=== PATIENT | female | born 1960 | race African-American/Black ===

== ENCOUNTER 2021-09-04 17:28 | Inpatient (IN) | payer MEDICAID ==
[~2021-09-04] VITALS: Ht 167.6 cm; Wt 68.1 kg
[2021-09-04] MEDS ORDERED: LEVETIRACETAM 1000MG PREMIX 100 ML IV ONE (17:45)
[2021-09-04] MEDS ORDERED: SODIUM CHLORIDE 0.9% 1,000 ML IV ONE (17:45)
[2021-09-04 18:30] LABS: MEAN CORPUSCULAR HEMOGLOBIN 26.5 pg (28.0-32.0); MEAN PLATELET VOLUME 7.7 fl (7.4-10.4); PLATELET 640 x1000/uL (130-400); RED BLOOD CELL COUNT 1.23 mill/uL (4.2-5.4); RED CELL DISTRIBUTION WIDTH 21.5 % (11.6-14.6)
[2021-09-04 18:34] LABS: CHLORIDE 93 mEq/L (98-107)
[2021-09-04 18:36] LABS: HEMOGLOBIN. 3.3 g/dL (12.0-16.0)
[2021-09-04 18:37] LABS: HEMATOCRIT. 10.7 % (36.0-48.0)
[2021-09-04 18:39] LABS: ETHANOL BLOOD < 10 mg/dL
[2021-09-04 18:44] LABS: CREATINE KINASE 33 IU/L (26-192)
[2021-09-04 18:45] LABS: CLARITY URINE CLEAR (CLEAR); COLOR URINE YELLOW (YELLOW); KETONES URINE NEGATIVE (NEGATIVE); LEUKOCYTE ESTERASE URINE NEGATIVE (NEGATIVE); NITRITE URINE NEGATIVE (NEGATIVE); OCCULT BLOOD URINE NEGATIVE (NEGATIVE); PH URINE 5.5 (4.5-8.0); PROTEIN URINE 1+ (NEGATIVE); SPECIFIC GRAVITY URINE 1.014 (1.005-1.030)
[2021-09-04 19:20] LABS: NUCLEATED RED BLOOD CELLS 1 /100 WBC
[2021-09-04 19:21] LABS: PLATELET ESTIMATE INCREASED
[2021-09-04 19:24] LABS: *AMPHETAMINES SCREEN URINE NEGATIVE (NEGATIVE); *BARBITURATES SCREEN URINE NEGATIVE (NEGATIVE); *BENZODIAZEPINES SCREEN URINE NEGATIVE (NEGATIVE); *COCAINE SCREEN URINE PRESUMTIVE POSITIVE (NEGATIVE); CANNABINOID URINE SCREEN PRESUMTIVE POSITIVE (NEGATIVE); METHADONE URINE SCREEN NEGATIVE (NEGATIVE); OPIATES URINE SCREEN NEGATIVE (NEGATIVE); PHENCYCLIDINE URINE SCREEN NEGATIVE (NEGATIVE)
[2021-09-05] VITALS (9 sets, daily range): BP systolic 112–148; BP diastolic 59–78
[2021-09-05] MEDS: SODIUM CHLORIDE 0.9% 1,000 ML IV SCH (04:53)
[2021-09-05 07:58] LABS: HEMOGLOBIN 8.4 g/dL (12.0-16.0)
[2021-09-05] MEDS ORDERED: ONDANSETRON HCL 4MG/2ML INJ IV PRN (09:15)
[2021-09-05] MEDS ORDERED: LORAZEPAM 2MG/ML CPJ IV PRN (09:15)
[2021-09-05] MEDS ORDERED: ACETAMINOPHEN 325MG TABLET PO PRN (09:15)
[2021-09-05] MEDS ORDERED: PANTOPRAZOLE SODIUM 40 MG/VIAL IV SCH (15:15)
[2021-09-05 18:27] LABS: BASOPHILS % 0.2 % (0.0-2.0); EOSINOPHILS % 0.5 % (0.0-5.0); LYMPHOCYTES % 12.5 % (20.0-50.0); MEAN CORPUSCULAR HEMOGLOBIN 25.9 pg (28.0-32.0); MEAN CORPUSCULAR VOLUME 78.9 fL (81.0-99.0); MEAN PLATELET VOLUME 6.7 fl (7.4-10.4); MONOCYTES % 6.1 % (2.0-8.0); NEUTROPHILS % 80.7 % (40.0-76.0); PLATELET 446 x1000/uL (130-400); RED BLOOD CELL COUNT 2.41 mill/uL (4.2-5.4); RED CELL DISTRIBUTION WIDTH 18.4 % (11.6-14.6)
[2021-09-05 18:40] LABS: HEMATOCRIT. 19.1 % (36.0-48.0); HEMOGLOBIN. 6.2 g/dL (12.0-16.0)
[2021-09-05 19:05] LABS: FOLIC ACID (FOLATE) SERUM 14.1 ng/mL (>5.38)
[2021-09-05 21:00] LABS: HEMOGLOBIN 6.1 g/dL (12.0-16.0)
[2021-09-05 21:01] LABS: HEMATOCRIT 18.6 % (36.0-48.0)
[2021-09-05] MEDS: LEVETIRACETAM 500MG TABLET PO SCH (22:15)
[2021-09-05 22:39] LABS: TOTAL IRON BINDING CAPACITY 423 ug/dL (250-450)
[2021-09-06] VITALS (9 sets, daily range): BP systolic 100–129; BP diastolic 48–81
[2021-09-06] MEDS: PANTOPRAZOLE SODIUM 40 MG/VIAL IV SCH ×2 (05:17→17:20)
[2021-09-06 06:44] LABS: PROTHROMBIN TIME 11.2 sec (9.6-11.0)
[2021-09-06] MEDS: SODIUM CHLORIDE 0.9% 1,000 ML IV SCH ×2 (07:00→22:38)
[2021-09-06 08:50] LABS: HEMATOCRIT 21.8 % (36.0-48.0); HEMOGLOBIN 7.2 g/dL (12.0-16.0)
[2021-09-06] MEDS: LEVETIRACETAM 500MG TABLET PO SCH ×2 (10:21→22:35)
[2021-09-06] MEDS ORDERED: LABETALOL 5MG/ML SYR 20 MG/4 ML SYRINGE IV PRN (12:30)
[2021-09-06] MEDS ORDERED: MEPERIDINE HCL/PF 25MG/ML CPJ IV PRN (12:30)
[2021-09-06] MEDS ORDERED: ONDANSETRON HCL 4MG/2ML INJ IV PRN (12:30)
[2021-09-06] MEDS ORDERED: HYDROMORPHONE HCL/PF 2MG/ML CPJ IV PRN (12:30)
[2021-09-06 14:50] LABS: HEMATOCRIT 22.2 % (36.0-48.0); HEMOGLOBIN 7.3 g/dL (12.0-16.0)
[2021-09-06] MEDS: SUCRALFATE 1G TABLET PO SCH (17:20)
[2021-09-06] MEDS ORDERED: IRON SUCROSE COMPLEX 100 MG/5 ML ML IV SCH (18:00)
[2021-09-06 21:39] LABS: PROTHROMBIN TIME 10.9 sec (9.6-11.0)
[2021-09-06 21:56] LABS: HEMATOCRIT 19.8 % (36.0-48.0); HEMOGLOBIN 6.7 g/dL (12.0-16.0)
[2021-09-06] MEDS: IRON SUCROSE COMPLEX 100 MG/5 ML ML IV SCH (22:35)
[2021-09-07] VITALS (13 sets, daily range): BP systolic 85–141; BP diastolic 34–91
[2021-09-07] MEDS ORDERED: SODIUM CHLORIDE 0.9% 1,000 ML IV SCH
[2021-09-07] MEDS: SUCRALFATE 1G TABLET PO SCH ×4 (00:23→17:25)
[2021-09-07] MEDS: DEXT 5%/0.45% NACL 1000ML 1,000 ML IV SCH ×3 (00:24→20:39)
[2021-09-07] MEDS: PANTOPRAZOLE SODIUM 40 MG/VIAL IV SCH ×2 (05:00→16:07)
[2021-09-07 07:21] LABS: CHLORIDE 114 mEq/L (98-107)
[2021-09-07 07:24] LABS: BASOPHILS % 0.5 % (0.0-2.0); HEMATOCRIT. 28.2 % (36.0-48.0); HEMOGLOBIN. 9.5 g/dL (12.0-16.0); LYMPHOCYTES % 17.4 % (20.0-50.0); MEAN CORPUSCULAR HEMOGLOBIN 30.2 pg (28.0-32.0); MEAN CORPUSCULAR VOLUME 89.3 fL (81.0-99.0); MEAN PLATELET VOLUME 7.1 fl (7.4-10.4); MONOCYTES % 8.2 % (2.0-8.0); NEUTROPHILS % 72.9 % (40.0-76.0); PLATELET 277 x1000/uL (130-400); RED BLOOD CELL COUNT 3.16 mill/uL (4.2-5.4); RED CELL DISTRIBUTION WIDTH 16.7 % (11.6-14.6)
[2021-09-07] MEDS: CYANOCOBALAMIN 1000MCG/ML VIAL IM SCH (08:46)
[2021-09-07] MEDS: LEVETIRACETAM 500MG TABLET PO SCH ×2 (08:46→20:39)
[2021-09-07] MEDS: SODIUM CHLORIDE 0.9% 1,000 ML IV SCH ×2 (10:37→20:40)
[2021-09-07 12:36] LABS: HEMOGLOBIN 9.4 g/dL (12.0-16.0)
[2021-09-07] MEDS: IRON SUCROSE COMPLEX 100 MG/5 ML ML IV SCH (20:39)
[2021-09-08] VITALS: BP 104/54
[2021-09-08] MEDS: SUCRALFATE 1G TABLET PO SCH ×5 (00:09→23:14)
[2021-09-08 00:26] LABS: HEMOGLOBIN 9.7 g/dL (12.0-16.0)
[2021-09-08 04:00] VITALS: BP 118/89
[2021-09-08 05:11] LABS: PROTHROMBIN TIME 10.3 sec (9.6-11.0)
[2021-09-08] MEDS: PANTOPRAZOLE SODIUM 40 MG/VIAL IV SCH ×2 (05:15→16:00)
[2021-09-08] MEDS: DEXT 5%/0.45% NACL 1000ML 1,000 ML IV SCH ×2 (05:15→16:00)
[2021-09-08 06:10] LABS: CHLORIDE 111 mEq/L (98-107)
[2021-09-08 06:19] LABS: HEMATOCRIT. 27.1 % (36.0-48.0); HEMOGLOBIN. 9.6 g/dL (12.0-16.0); MEAN CORPUSCULAR HEMOGLOBIN 29.6 pg (28.0-32.0); MEAN CORPUSCULAR VOLUME 83.6 fL (81.0-99.0); MEAN PLATELET VOLUME 7.5 fl (7.4-10.4); PLATELET 335 x1000/uL (130-400); RED BLOOD CELL COUNT 3.24 mill/uL (4.2-5.4); RED CELL DISTRIBUTION WIDTH 17.3 % (11.6-14.6)
[2021-09-08 08:00] VITALS: BP 131/80
[2021-09-08 08:17] LABS: NUCLEATED RED BLOOD CELLS 1 /100 WBC; PLATELET ESTIMATE NORMAL
[2021-09-08] MEDS: LEVETIRACETAM 500MG TABLET PO SCH ×2 (09:06→22:09)
[2021-09-08] MEDS: CYANOCOBALAMIN 1000MCG/ML VIAL IM SCH (09:06)
[2021-09-08] MEDS ORDERED: KCL 20MEQ/100ML PREMIX 100 ML IV NR (11:00)
[2021-09-08 12:00] VITALS: BP 140/86
[2021-09-08] MEDS: SODIUM CHLORIDE 0.9% 1,000 ML IV SCH (12:45)
[2021-09-08] MEDS ORDERED: MIDAZOLAM HCL 5 MG/5 ML VIAL ONE (12:52)
[2021-09-08] MEDS ORDERED: PROPOFOL 200MG/20ML VIAL IV ONE (12:53)
[2021-09-08 16:00] VITALS: BP 151/77
[2021-09-08] MEDS ORDERED: PANTOPRAZOLE 40MG DR TABLET PO SCH (18:30)
[2021-09-08] MEDS ORDERED: POTASSIUM CHLORIDE 20MEQ TABLET SR PO NR (18:30)
[2021-09-08 20:00] VITALS: BP 147/76
[2021-09-08] MEDS: IRON SUCROSE COMPLEX 100 MG/5 ML ML IV SCH (23:13)
[2021-09-09] VITALS (26 sets, daily range): BP systolic 72–176; BP diastolic 34–99
[2021-09-09 03:28] LABS: HEMATOCRIT 21.1 % (36.0-48.0); HEMOGLOBIN 7.2 g/dL (12.0-16.0)
[2021-09-09] MEDS: SUCRALFATE 1G TABLET PO SCH ×3 (06:00→18:48)
[2021-09-09] MEDS: PANTOPRAZOLE 40MG DR TABLET PO SCH ×2 (06:42→21:00)
[2021-09-09] MEDS: SODIUM CHLORIDE 0.9% 1,000 ML IV SCH ×2 (06:42→15:25)
[2021-09-09] MEDS ORDERED: LIDOCAINE HCL 1% 20ML VIAL (Pyxis) INJ ONE ×2 (07:18→13:24)
[2021-09-09] MEDS: LEVETIRACETAM 500MG TABLET PO SCH ×2 (09:40→21:00)
[2021-09-09] MEDS: CYANOCOBALAMIN 1000MCG/ML VIAL IM SCH (09:40)
[2021-09-09] MEDS ORDERED: IOHEXOL-300 100 ML BOTTLE ONE (13:25)
[2021-09-09] MEDS ORDERED: IOHEXOL-350 100 ML BOTTLE ONE (14:16)
[2021-09-09 17:42] LABS: HEMATOCRIT. 21.5 % (36.0-48.0); HEMOGLOBIN. 7.2 g/dL (12.0-16.0); MEAN CORPUSCULAR HEMOGLOBIN 28.8 pg (28.0-32.0); MEAN CORPUSCULAR VOLUME 85.8 fL (81.0-99.0); MEAN PLATELET VOLUME 7.8 fl (7.4-10.4); PLATELET 256 x1000/uL (130-400); RED CELL DISTRIBUTION WIDTH 15.8 % (11.6-14.6)
[2021-09-09 18:12] LABS: PLATELET ESTIMATE NORMAL
[2021-09-09 18:29] LABS: CHLORIDE 114 mEq/L (98-107)
[2021-09-09] MEDS ORDERED: ONDANSETRON HCL 4MG/2ML INJ IV PRN (20:45)
[2021-09-09] MEDS: IRON SUCROSE COMPLEX 100 MG/5 ML ML IV SCH (21:12)
[2021-09-09] MEDS ORDERED: SODIUM CHLORIDE 0.9% 1,000 ML IV SCH (22:00)
[2021-09-09] MEDS ORDERED: PANTOPRAZOLE 80 MG in SODIUM CHLORIDE 0.9% 100 ML IV SCH ×4 (22:00)
[2021-09-10] VITALS (24 sets, daily range): BP systolic 93–170; BP diastolic 54–88
[2021-09-10 00:06] LABS: HEMOGLOBIN 6.5 g/dL (12.0-16.0)
[2021-09-10 00:07] LABS: HEMATOCRIT 18.9 % (36.0-48.0)
[2021-09-10] MEDS ORDERED: DEXT 5%/0.45% NACL 1000ML 1,000 ML IV SCH (02:15)
[2021-09-10] MEDS ORDERED: ONDANSETRON HCL 4MG/2ML INJ IV PRN (02:30)
[2021-09-10] MEDS ORDERED: SODIUM CHLORIDE 0.9% 1,000 ML IV SCH (02:30)
[2021-09-10] MEDS: PANTOPRAZOLE SODIUM 40 MG/VIAL IV SCH ×2 (03:46→14:15)
[2021-09-10] MEDS: SUCRALFATE 1G TABLET PO SCH ×4 (05:59→18:00)
[2021-09-10] MEDS: METOCLOPRAMIDE HCL 10MG/2ML VIAL IV SCH ×3 (06:03→18:00)
[2021-09-10] MEDS: DEXT 5%/0.45% NACL 1000ML 1,000 ML IV SCH ×2 (10:00→21:24)
[2021-09-10] MEDS: CYANOCOBALAMIN 1000MCG/ML VIAL IM SCH (10:06)
[2021-09-10] MEDS: LEVETIRACETAM 500MG TABLET PO SCH ×2 (10:06→21:23)
[2021-09-10 11:30] LABS: CHLORIDE 116 mEq/L (98-107)
[2021-09-10 16:44] LABS: BASOPHILS % 0.3 % (0.0-2.0); EOSINOPHILS % 0.5 % (0.0-5.0); HEMATOCRIT. 22.9 % (36.0-48.0); HEMOGLOBIN. 7.8 g/dL (12.0-16.0); LYMPHOCYTES % 14.8 % (20.0-50.0); MEAN CORPUSCULAR HEMOGLOBIN 29.5 pg (28.0-32.0); MEAN PLATELET VOLUME 7.8 fl (7.4-10.4); MONOCYTES % 5.9 % (2.0-8.0); NEUTROPHILS % 78.5 % (40.0-76.0); PLATELET 227 x1000/uL (130-400); RED BLOOD CELL COUNT 2.63 mill/uL (4.2-5.4); RED CELL DISTRIBUTION WIDTH 15.9 % (11.6-14.6)
[2021-09-10 17:03] LABS: CHLORIDE 115 mEq/L (98-107)
[2021-09-10 17:20] LABS: PROTHROMBIN TIME 10.8 sec (9.6-11.0)
[2021-09-10] MEDS ORDERED: LORAZEPAM 2MG/ML CPJ IV PRN (19:00)
[2021-09-10] MEDS ORDERED: LORAZEPAM 2MG/ML CPJ IM PRN (19:00)
[2021-09-11] VITALS (15 sets, daily range): BP systolic 78–161; BP diastolic 38–99
[2021-09-11] MEDS: SUCRALFATE 1G TABLET PO SCH ×2 (00:26→06:15)
[2021-09-11] MEDS: METOCLOPRAMIDE HCL 10MG/2ML VIAL IV SCH ×2 (00:26→06:14)
[2021-09-11] MEDS: PANTOPRAZOLE SODIUM 40 MG/VIAL IV SCH (03:02)
[2021-09-11] MEDS: DEXT 5%/0.45% NACL 1000ML 1,000 ML IV SCH (07:30)
[2021-09-11] MEDS ORDERED: SODIUM BICARBONATE 8.4% 1 MEQ/ML 50ML SYR IV ONE (08:27)
[2021-09-11] MEDS ORDERED: CALCIUM CHLORIDE 1GM/10ML SYR IV ONE (08:27)
[2021-09-11] MEDS ORDERED: EPINEPHRINE 0.1MG/ML (1:10,000) 10ML SYR ONE (08:27)
[2021-09-11] MEDS: CYANOCOBALAMIN 1000MCG/ML VIAL IM SCH (08:41)
[2021-09-11] MEDS: LEVETIRACETAM 500MG TABLET PO SCH (08:41)
== END 2021-09-11 10:34 | DRG 45 ==
LOC: ER 17:28 → EDBD 09-05 01:07 → 8WST 09-05 01:07 → EDBEDREQTM 09-05 01:14 → EDBEDREQ 09-05 01:14 → EDBEDREQDT 09-05 01:14 → ENRESERV 09-05 01:39 → 5WST 09-09 21:22 → 5EST 09-09 21:25 → MICUSO 09-11 09:45
PROVIDERS: ADMIT Internal Medicine; ATTEND Internal Medicine
PROC: 0DB78ZX Excision of Stomach, Pylorus, Via Natural or Artificial Opening Endoscopic, Diagnostic (ICD-10-PCS; 2021-09-06)
PROC: 0DJ08ZZ Inspection of Upper Intestinal Tract, Via Natural or Artificial Opening Endoscopic (ICD-10-PCS; 2021-09-08)
PROC: B4121ZZ Fluoroscopy of Hepatic Artery using Low Osmolar Contrast (ICD-10-PCS; 2021-09-09)
PROC: B4101ZZ Fluoroscopy of Abdominal Aorta using Low Osmolar Contrast (ICD-10-PCS; 2021-09-09)
PROC: 05HY33Z Insertion of Infusion Device into Upper Vein, Percutaneous Approach (ICD-10-PCS; 2021-09-09)
PROC: 30233N1 Transfusion of Nonautologous Red Blood Cells into Peripheral Vein, Percutaneous Approach (ICD-10-PCS; principal; 2021-09-11)
PROC: 5A1935Z Respiratory Ventilation, Less than 24 Consecutive Hours (ICD-10-PCS; 2021-09-11)
PROC: 5A12012 Performance of Cardiac Output, Single, Manual (ICD-10-PCS; 2021-09-11)
PROC: 0BH17EZ Insertion of Endotracheal Airway into Trachea, Via Natural or Artificial Opening (ICD-10-PCS; 2021-09-11)
DX: I63.9 Cerebral infarction, unspecified (principal); N17.0 Acute kidney failure with tubular necrosis; J96.01 Acute respiratory failure with hypoxia; J69.0 Pneumonitis due to inhalation of food and vomit; K22.11 Ulcer of esophagus with bleeding; D50.0 Iron deficiency anemia secondary to blood loss (chronic); F10.10 Alcohol abuse, uncomplicated; F12.10 Cannabis abuse, uncomplicated; F14.10 Cocaine abuse, uncomplicated; Z20.822 Contact with and (suspected) exposure to COVID-19; F17.210 Nicotine dependence, cigarettes, uncomplicated; G40.909 Epilepsy, unspecified, not intractable, without status epilepticus; Y90.9 Presence of alcohol in blood, level not specified; I10 Essential (primary) hypertension; F11.10 Opioid abuse, uncomplicated; F16.10 Hallucinogen abuse, uncomplicated; I65.21 Occlusion and stenosis of right carotid artery; K29.71 Gastritis, unspecified, with bleeding; K26.4 Chronic or unspecified duodenal ulcer with hemorrhage; Z91.14 Patient's other noncompliance with medication regimen; Z91.19 Patient's noncompliance with other medical treatment and regimen; Z59.01 Sheltered homelessness; Z71.51 Drug abuse counseling and surveillance of drug abuser; Z86.73 Personal history of transient ischemic attack (TIA), and cerebral infarction without residual deficits
CPT/HCPCS: 31500; 36415; 70551; 71045; 74174; 75726; 76700; 76937; 80048; 80053; 80061; 80305; 80320; 81003; 82550; 82607; 82728; 82746; 82962; 83540; 83550; 83605; 83880; 84443; 84484; 85014; 85018; 85025; 85044; 85049; 85384; 86850; 86900; 86920; 87426; 88305; 93306; 93880; 93976; 94002; 97110; 97162; 97166; 97530; 97535; 99291; C1725; C1766; C1769; C1887; C1893; C9113; J1644; J1953; J2250; J2405; J2704; J2765; J3420; J3480; J3490; J7030; J7050; P9016; Q9967; A4315; G0480